=== PATIENT | male | born 1965 ===

== ENCOUNTER 2023-03-04 15:26 | Inpatient (IN) | payer MEDICARE, BC, SELFPAY ==
[2023-03-04 15:38] VITALS: BP 160/95; BP 200/120; PULSE 72; PULSE 75; RESP 14; TEMP 36.9; O2SAT 96; O2SAT 99; BMI 30.6
--- NOTE | 2023-03-04 16:02 | ECG_ITS ---
Test Reason : HYPERTENTION Blood Pressure : / mmHG Vent. Rate : 069 BPM Atrial Rate : 069 BPM P-R Int : 146 ms QRS Dur : 094 ms QT Int : 414 ms P-R-T Axes : 052 -16 022 degrees QTc Int : 443 ms Normal sinus rhythm Possible Left atrial enlargement Left ventricular hypertrophy ( R in aVL , Woody product , Romhilt-Melendez ) Abnormal ECG No previous ECGs available Referred By: Generic ED Physician Electronically Signed By:LES SALAS
--- NOTE | 2023-03-04 16:16 | ED_ITS ---
HPI - Psych General Chief Complaint: Psychiatric Symptoms Stated Complaint: Section 12, depression, hypertension per ems Time Seen by Provider: 03/04/23 16:09 Source: patient Mode of arrival: EMS Limitations: no limitations History of Present Illness HPI Narrative: Patient comes to the emergency room complaining of worsening depression. Seems that patient is having marital problems. Patient had a well check today, PD was called to the patient's residence, seems that the patient mentioned that he is trying to solve his problems by ingesting more pain medication than usual. Patient denies HI. Patient requesting to be seen by the care team for help for depression. Patient states that he has been out of his lisinopril / hydrochlorothiazide tablet for over a month because he ran out of them. Related Data Allergies Allergy/AdvReac Type Severity Reaction Status Date / Time azithromycin Allergy Rash Verified 03/04/23 15:54 Review of Systems 2 Review of Systems: Constitutional : No Weight loss, No Fever, No Chills, No Night Sweats, No Fatigue, No Malaise ENT/Mouth : No Hearing loss, No Ear Pain, No Nasal Congestion, No Sinus Pain, No Hoarseness, No sore throat, No Rhinorrhea, No Swallowing Difficulty Eyes: No Eye Pain, No Swelling, No Redness, No Foreign Body, No Discharge, No Vision Changes Cardiovascular : No Chest Pain, No SOB, No Dyspnea on Exertion, No Orthopnea, No Edema, No Palpitations Respiratory : No Cough, No Sputum, No Wheezing, No Smoke Exposure, No Dyspnea Gastrointestinal : No Nausea, No Vomiting, No Diarrhea, No Constipation, No abdominal Pain, No Hematochezia, No Melena Genitourinary : no irregular bleeding, No Dysuria, No Urinary Frequency, No Hematuria, No Urinary Incontinence, No Urgency, No Flank Pain, No Urinary Flow Changes, No Hesitancy Musculoskeletal : No joint pain, No Myalgias, No Joint Swelling Skin : No Skin Lesions, No rash Neuro : No Weakness, No Numbness, No Paresthesias, No Loss of Consciousness, No Dizziness, No Headache Psych Complaining of depression, vague SI, no HI Heme/Lymph: No Bruising, No Bleeding,No Lymphadenopathy Endocrine : No Polyuria, No Polydipsia, No Temperature Intolerance PMFSH Past Medical History Medical History (Updated 03/04/23 @ 17:46 by Jesenia Cardona MD) Depression Social History Social History Advance Directives: No Advance Directives Information Provided: No Physical Exam 2 Vital Signs: Vital Signs: Last Vital Signs Temp 97.6 F 03/04/23 20:45 Pulse 88 03/04/23 20:20 Resp 16 03/04/23 20:20 BP 135/82 03/04/23 20:20 Pulse Ox 94 03/04/23 20:20 O2 Del Method Nasal Cannula 03/04/23 20:20 O2 Flow Rate 2 03/04/23 20:20 BMI result Body Mass Index 30.6 Const: Other: Appearance: Alert. Oriented X3. No acute distress. Eyes: Pupils equal, round and reactive to light. ENT: Pharynx normal. Neck: Normal inspection. Neck supple. No lymph nodes noted. No crepitus CVS: Normal heart rate and rhythm. Pulses normal. Normal S1 and S2 Respiratory: No respiratory distress. Breath sounds normal. No Wheezing. No rales Abdomen: Soft and nontender. No rigidity. No distention. Skin: Skin warm and dry. Normal skin color. Normal skin turgor. Extremities: No lower extremity edema. No Lacerations. No Rash Neuro: Oriented X 3. No motor deficit. No sensory deficit. Moving all extremities. No slurred speech. CN 2 through 12 grossly intact Psych: calm, cooperative, flat affect Course Course Course Narrative: - all of patient's labs pending - patient is on a Section 12 started out in the community - care team consult pending Medical Decision Making Medical Decision Making MDM Narrative: - my interpretation of labs: Hematology within normal limits, chemistry normal, alcohol 11 - urine pending - care team consult pending - physician observation started at 17:40 -CARE team evaluated the pt, recs: [facility] for tomorrow, CARE team follow up in am of 03/05/23 Differential Diagnosis Differential Diagnoses: The differential diagnosis associated with the presentation includes ( anxiety, depression, polysubstance abuse, alcohol dependence , alcohol abuse) Admission/Observation Consideration of admission/observation: Escalation of care including admission/observation considered ( patient will remain under observation in the emergency room until behavioral health evaluates the patient and plans disposition) Lab Data 03/04/23 16:26 03/04/23 16:58 Labs: Lab Results 03/04/23 03/04/23 03/04/23 Range/Units 16:26 16:58 20:40 WBC 6.8 (4.8-10.8) X10*3/uL RBC 4.90 (4.60-5.80) X10*6/uL Hgb 14.3 (14.0-18.0) g/dl Hct 42.8 (42.0-52.0) % MCV 87.3 (80.0-98.0) fL MCH 29.2 (27.0-33.0) pg MCHC 33.4 (31.0-36.0) g/dl RDW 12.8 (11.0-16.0) % Plt Count 221 (160-400) X10*3/uL MPV 10.0 (9.4-12.4) fL Immature Gran % (Auto) 0.4 (0.0-0.4) % Neut % (Auto) 54.9 (45-73) % Lymph % (Auto) 29.2 (20-40) % [place] % (Auto) 8.5 (2-11) % Eos % (Auto) 5.4 H (0-4) % Baso % (Auto) 1.6 (0-2) % Lymph # (Auto) 2.0 (1.2-4.9) X10*3/uL [place] # (Auto) 0.6 (0.1-1.2) X10*3/uL Eos # (Auto) 0.4 (0.0-0.4) X10*3/uL Baso # (Auto) 0.1 (0.0-0.2) X10*3/uL Abs Immat Gran (auto) 0.03 (0.00-0.03) X10*3/uL Absolute Neuts (auto) 3.7 (2.0-8.3) x10*3/uL Absolute Nucleated RBC 0.000 (0.0-0.012) X10*3/uL Nucleated RBC % (auto) 0.0 (0.0-0.2) /100WBC Sodium 142 (135-145) mmol/L Potassium 4.2 (3.3-5.1) mmol/L Chloride 107 (96-108) mmol/L Carbon Dioxide 27 (22-29) mmol/L Anion Gap 12 (12-20) BUN 11 (9-16) mg/dL Creatinine 0.80 (0.5-1.4) mg/dL Estim Creat Clear Calc 137.0 Estimated GFR > 60 Random Glucose 96 (60-115) mg/dL Calcium 9.2 (8.4-10.2) mg/dL Troponin I High Sens < 2.7 (<3.5-35.0) ng/L Urine Color Yellow Urine Appearance Clear Urine pH 6.0 (5.0-9.0) Ur Specific [place] 1.015 (1.005-1.025) Urine Protein Negative (Neg-Trace) mg/dL Urine Glucose (UA) Negative (Negative) mg/dL Urine Ketones Negative (Negative) mg/dL Urine Blood Negative (Negative) Urine Nitrite Negative (Negative) Ur Leukocyte Esterase Negative (Negative) Urine Opiates Screen Not Detected (Not Detect) Urine Fentanyl Screen Not Detected (Not Detect) Ur Barbiturates Screen Not Detected (Not Detect) Ur Phencyclidine Scrn Not Detected (Not Detect) Ur Amphetamines Screen Not Detected (Not Detect) U Benzodiazepines Scrn POSITIVE H (Not Detect) Urine Cocaine Screen Not Detected (Not Detect) U Marijuana (THC) Screen Not Detected (Not Detect) Ethyl Alcohol 11 mg/dL Discharge Plan Discharge Clinical Impression: Depression Patient Disposition: Still a Patient Interventions: [place]-Suicide Risk Severity Scale Last Done: 03/04/23 20:20
[2023-03-04 16:31] LABS: MANUAL DIFF FLAG NO
[2023-03-04 16:32] LABS: Basophils Absolute Auto 0.1 X10*3/uL (0.0-0.2); Basophils Percent Auto 1.6 % (0-2); Eosinophils Absolute Auto 0.4 X10*3/uL (0.0-0.4); Eosinophils Percent Auto 5.4 % (0-4); Hematocrit 42.8 % (42.0-52.0); Hemoglobin 14.3 g/dl (14.0-18.0); Imm Gran Abs Auto 0.03 X10*3/uL (0.00-0.03); Imm Gran Pct Auto 0.4 % (0.0-0.4); Lymphocytes Percent Auto 29.2 % (20-40); Mean Corpuscular HGB Conc 33.4 g/dl (31.0-36.0); Mean Corpuscular Hemoglobin 29.2 pg (27.0-33.0); Mean Corpuscular Volume 87.3 fL (80.0-98.0); Monocytes Absolute Auto 0.6 X10*3/uL (0.1-1.2); Monocytes Percent Auto 8.5 % (2-11); Neutrophils Absolute Auto 3.7 x10*3/uL (2.0-8.3); Neutrophils Percent Auto 54.9 % (45-73); Platelet Count 221 X10*3/uL (160-400); Red Cell Distribution Width 12.8 % (11.0-16.0); White Blood Count 6.8 X10*3/uL (4.8-10.8)
[2023-03-04 17:29] LABS: Anion Gap 12 (12-20); Blood Urea Nitrogen 11 mg/dL (9-16); Calcium 9.2 mg/dL (8.4-10.2); Carbon Dioxide 27 mmol/L (22-29); Chloride 107 mmol/L (96-108); Estimated Glomerular Filt Rate > 60; Ethanol 11 mg/dL; Glucose Random 96 mg/dL (60-115); Potassium 4.2 mmol/L (3.3-5.1); Sodium 142 mmol/L (135-145)
[2023-03-04 17:44] LABS: Troponin-I High Sensitivity < 2.7 ng/L (<3.5-35.0)
[2023-03-04 20:20] VITALS: BP 135/82; PULSE 88; RESP 16; TEMP 36.9; O2SAT 94
[2023-03-04 20:45] VITALS: TEMP 36.4
--- NOTE | 2023-03-04 20:53 | PC.NURSE ---
Assumed care of pt at 1914. PT sleeping until 2044 in which he was able to provide this RN a urine sample. Pt in hospital for special care gown, sitter at bedside. Vital signs stable 139/81 (106), pulse 75 rr 16. PT initially on 2L of oxygen tapered to zero as pt oxygen saturation is at 95% on RA. Plan of care ongoing
[2023-03-04 20:55] LABS: Appearance Urine Clear; Color Urine Yellow; Glucose Urine UA Negative (Negative); Leukocyte Esterase Urine Negative (Negative); Nitrite Urine Negative (Negative); Specific Gravity - Urine 1.015 (1.005-1.025); Urine Blood Negative (Negative); Urine Ketones Negative (Negative); Urine Protein Negative (Neg-Trace)
[2023-03-04 21:01] LABS: Amphetamine Screen Urine Not Detected (Not Detect); Barbiturates, Urine Not Detected (Not Detect); Benzodiazepines Screen Urine POSITIVE (Not Detect); Cannabinoid Screen Urine Not Detected (Not Detect); Cocaine Screen Urine Not Detected (Not Detect); Fentanyl, urine Not Detected (Not Detect); Opiate Screen Urine Not Detected (Not Detect); Phencyclidine Screen Urine Not Detected (Not Detect)
[2023-03-05 00:57] VITALS: BP 141/85; PULSE 56; RESP 16; TEMP 36.5; O2SAT 97
[2023-03-05 04:02] VITALS: BP 172/101; PULSE 67; RESP 18; TEMP 36.7; O2SAT 94
[2023-03-05] MEDS: LORazepam 1 MG TABLET 2 MG PO ×2 (04:50→13:31)
[2023-03-05 06:57] VITALS: BP 156/87; PULSE 72; RESP 15; TEMP 36.9; O2SAT 98
--- NOTE | 2023-03-05 06:59 | PC.NURSE ---
PT reporting mild anxiety and wanted to calm down. Med rec completed. Medications administered as per AUG. Pt resting quietly in no cute distress. Denies hi/si at this time.
--- NOTE | 2023-03-05 08:05 | PC.NURSE ---
sleeping and easily woken, states he doesn't need anything, skin wpd, sitter at bedside, CARE team reports plan to go to respite
[2023-03-05] MEDS: levETIRAcetam 1,000 MG TABLET 1000 MG PO ×2 (08:39→19:52)
--- NOTE | 2023-03-05 09:46 | PHA.MEDREC ---
Addendum entered by Anoop Cruz 03/06/23 12:02: Told by RN that patient's mom states the patient was DC'd off Keppra and Ambien months ago by their neurologist. Called patient's pharmacy, to which they stated patient has been actively refilling medication (Keppra 750mg on 03/01/23 and Ambien 5mg 02/08/23). Notified RN Amber and she stated that she will ask the patient regarding the two medications. Original Note: Pharmacy Consult ? Medication Reconciliation Pharmacy has completed the medication reconciliation. Patient fills at [address] Called to confirm since nothing shows in claim history.
--- NOTE | 2023-03-05 09:51 | PC.NURSE ---
alert, speech clear, skin wpd, nad, spoke with his mother and awaiting care team placement, sitter at bedside, calm and cooperative, nad
--- NOTE | 2023-03-05 11:07 | MHC.EDTECH ---
Patient refused vitals. states he needs to make a call. He has been on the phone all morning. Nurse Regina garibay. SG
--- NOTE | 2023-03-05 11:33 | MHC.CARE ---
CARE Team completed referral to [facility] at 8am. Referral is still under review. CARE Team updated Pt at 930am, Pt continues to be in agreement with plan of care. Pt gave t/w verbal permission for CARE Team to collaborate with Pts mother Lolly Law (sp) [phone] or [phone]. Lolly states she will be able to bring medication to [facility] / clothing ect for PT.
[2023-03-05] MEDS: OLANZapine 10 MG TABLET PO (13:31)
--- NOTE | 2023-03-05 13:33 | PC.NURSE ---
pt medicated per AUG, transitioned into rm 6 in [facility] pod, pt expressing anxiety r/t length of respite stay and not liking his surroundings in the pod, pt has a section [address]
[2023-03-05 19:29] VITALS: BP 158/85; PULSE 56; RESP 18; TEMP 36.4; O2SAT 96
[2023-03-05] MEDS: Acetaminophen 325 MG TABLET 975 MG PO (19:52)
[2023-03-05] MEDS: Zolpidem Tartrate 5 MG TABLET 10 MG PO (19:52)
[2023-03-05] MEDS: lisinopriL 20 MG TABLET PO (19:53)
[2023-03-05] MEDS: hydroCHLOROthiazide 25 MG TABLET PO (19:53)
[2023-03-06 03:13] VITALS: BP 145/83; PULSE 58; RESP 17; TEMP 36.5; O2SAT 98
--- NOTE | 2023-03-06 06:22 | PC.NURSE ---
Patient slept intermittently, no distress observed/reported except lower back pain tylenol 975 mg administered with + effect, patient compliant with his night time medication, patient thought continues to remain paranoid, behavior non concerning, ambulates safely with walker, care team assessed the patient twice, disposition pending psych consult, labs completed/resulted, VSS, will continue to monitor.
--- NOTE | 2023-03-06 07:26 | PC.NURSE ---
Resumed care of patient, he is currently resting. Awaiting placement at this time. Safety measures in place, safety checks in place.
[2023-03-06] MEDS: levETIRAcetam 1,000 MG TABLET 1000 MG PO (07:57)
[2023-03-06 08:25] LABS: COVID-19 Test Negative (Negative); IDNOW Serial# 08D9AD1C
[2023-03-06 09:47] VITALS: PULSE 58
--- NOTE | 2023-03-06 09:49 | PC.NURSE ---
Pt scored for COWS/CIWA as pt states he is withdrawing, when pt asked what symptoms he feels he is having he reports increased depression, and lower back pain. Pt reporting he is withdrawing from an opiod he was given for his back pain, last took prior to coming into hospital. Pt story is all over the place with scattered thoughts/conversations. Pt denies n/v/d/tremors/hallucinations/sensations at this time..
[2023-03-06] MEDS: Acetaminophen 325 MG TABLET 975 MG PO (10:56)
--- NOTE | 2023-03-06 11:12 | PC.NURSE ---
Pt mom and step dad currently visiting with patient in Pod, pt is very excited to see them and talk with them
--- NOTE | 2023-03-06 12:20 | PC.NURSE ---
This pattern chart writer touched base with mom while she was visiting, mom verbalized concerns about patients behaviors/ current mental status. Medications discussed that were being taken including Keppra and Ambien mom verbalized that the patient had not been taking these for months, and that keppra makes the patient a high fall risk and not in his right mind. MD and Pharmacy made aware. Pharmacy contact [facility] to clarify when the pt last refilled medication, [facility] confirmed Keppra was last filled on 03/01 and Ambien was 02/08. Pt verbilzed to mom he did refill them, however he is only taking the Keppra when his mind is racing and he is overwhelmed because it helps slow his mind He reported that he has liked taking the Ambien here because it is helping him sleep here just not at home. Pharm made this pattern chart writer aware that we do not carry his Nucynta in house, mom made aware and was going to bring in home supply, M5 nurse/pharm made aware, mom is aware of process with home medication review/orders. MD Hinojosa updated on medication concerns, and would like to have provider take over medication changes from here d/t concerns/misuse. Mom updated of plan to move to , possible d/c options, current plan of care/concerns. Everyone in agreement at this time. Nurse to nurse report given.
[2023-03-06 16:00] VITALS: PULSE 85
--- NOTE | 2023-03-06 17:28 | PC.NURSE ---
pt w given a walker due to unsteady gait per Dr. Reynolds. pt had a walker in the [facility] ED. pt reported to feeling better walking with the walker. pt was placed on 5 minute checks due to equipment.
--- NOTE | 2023-03-06 17:43 | PC.ADMIT ---
pt is a 57 year male who presented with confusion and SI. pt reported took several pills to feel numb pt was picked up by sin FREEMAN after being agitated and locking them out after a well-being check. per pt patient's mother and ex , pt has been acting erratic in the last few weeks. pt has a charge for disorderly driving. pt has prescription for nucyenta, an opioid medication, we has not taken in several days. pt reports he is withdrawing from not taking that med. pt reports he is not been takig his meds until he got in the hospital. pt has a PMH of a TBI, HTN, and back pain. pt has been walking with walker, approved by Dr. Reynolds, due to his unsteady gait. pt has been placed on 5 min checks. pt says he drools from the left side of his mouth and it was seen during admission. during admission, pt was pleasant, but tended to ramble on about his and his head condition. pt is confused at times. start treatment plan and promote safety.
[2023-03-06 18:00] VITALS: BP 172/85; PULSE 85; TEMP 36.8; O2SAT 95
--- NOTE | 2023-03-06 18:51 | PC.NURSE ---
pt signed a 3 day on 03/06/23. pt 3 day will be 03/09/23
[2023-03-06] MEDS: Zolpidem Tartrate 5 MG TABLET 10 MG PO (20:22)
[2023-03-06] MEDS: lisinopriL 20 MG TABLET PO (20:22)
[2023-03-06] MEDS: Fenofibrate,Micronized 134 MG CAPSULE PO (20:23)
[2023-03-06] MEDS: hydroCHLOROthiazide 25 MG TABLET PO (20:23)
[2023-03-07] MEDS: traZODone HCL 50 MG TABLET PO (01:53)
[2023-03-07] MEDS: hydrOXYzine HCL 25 MG TABLET PO ×2 (01:53→21:01)
[2023-03-07] MEDS: Ondansetron ODT 4 MG TAB.RAPDIS TRANSLINGU (02:32)
[2023-03-07] MEDS: cloNIDine HCL 0.1 MG TABLET PO (02:32)
--- NOTE | 2023-03-07 02:36 | PC.NURSE ---
Patient out on unit complaining of symptoms of withdrawal. Upon assessment, patient scored a 9 on his COWS. Provider cardiac monitor technician notified and orders obtained for one time order of 0.1mg clonidine and 4mg zofran.
[2023-03-07 06:00] VITALS: BP 140/87; PULSE 85; RESP 16; TEMP 36.9; O2SAT 95
[2023-03-07] MEDS: Omeprazole 40 MG CAPSULE.DR PO (06:17)
[2023-03-07 08:00] VITALS: PULSE 85
[2023-03-07] MEDS: levETIRAcetam 1,000 MG TABLET 1000 MG PO (08:14)
[2023-03-07] MEDS: Atorvastatin Calcium 40 MG TABLET PO (08:14)
[2023-03-07 09:05] LABS: Thyroid Stimulating Hormone 0.43 uIU/mL (0.32-4.0)
[2023-03-07 09:18] LABS: Folate 11.3 ng/mL (> or = 4.0); Vitamin B12 581 pg/mL (200-900)
--- NOTE | 2023-03-07 09:57 | HO.PSYADMNOT ---
HPI Date of Service: 03/07/23 Chief Complaint: overdose Sources of Information: patient interviewed, chart reviewed and crisis/core team assessment reviewed HPI Subjective Notes: Jarvis Warning and Conditional Voluntary Narrative: Pt is a 57 yo male with hx of depression, TBI 2020, chronic back pain who presents for depression and concern for overdose/SI. Patient reports that he has been depressed lately since his is dealing with breast cancer diagnosis and they have ongoing marital strife; also his and mother do not get along which creates extra tension. Patient denies any SI at all. This past week patient was at his mother's house spending time with her; on his way back to [facility] where he and lives with he called her to say janet. She said something to the effect that the relationship is over and said 'F.U. Patient felt badly and instead of going to [facility], went to their shared apartment and [place]. There he took extra prescribed Tapentadol ER, he says about 3, because he just wanted to feel numb... And to sleep. He denies that this was in any way a suicide attempt. He did text his friend Igor who said that patient sounded groggy and texted the word good by; Igor grew concerned and called patient's mother who called 911. Patient reiterates that this was not a suicide attempt and that was not a suicide goodbye text. He shares his opinion that suicide is selfish, he has too many things to live for and too many important people to live for. Patient denies any other drugs or alcohol use. Patient is open to treatment but would also like to go home soon. Patient has been off his Tapentadol ER for 8 days now, saying his back is very painful; said the plan was for him to be tapered off this and possibly moved to Suboxone. Patient would like to get back on some amount of Tapentadol since the pain feels intense and he is having withdrawal symptoms. Patient's mother and stepfather presented to the unit and patient encouraged ticket writer to discuss case with them who both agree that this was not a suicide attempt and that patient was not suicidal. They think that the goodbye text was simply saying goodbye and she thinks that Igor was well meaning but over-reacting. His mother says that patient will intermittently take more pain medications than prescribed and will sometimes run out early in the month; I even though his Keppra was discontinued couple years ago, patient still takes some once in a while when feeling the need to have his emotions calm down. Patient's mother said that he and his have been having marital strife due to several factors which includes struggles over her own children from another marriage and her breast cancer diagnosis. She says that patient's , who was once a [facility] booking police officer will one-week tell patient that she is excited to move with him to [place] and then another week tell him the marriage is over... Regarding history of patient using a gun, she says that a few years ago, right around the time of the TBI, patient's came in to find patient sitting with 1 of her guns pointed to his head. He immediately put it down and said that he just wanted to see what it felt like; that he could never actually hurt himself and would never do so; all guns were removed from the house at that time. Mother says no other suicidal gestures or expressions before or since. Past Psychiatric History: no past admission Medical Evaluation Reviewed: Yes [facility] Medical History (Updated 03/08/23 @ 08:47 by Cody Fortune MD) Chronic back pain TBI (traumatic brain injury) MDD (major depressive disorder), recurrent episode, moderate Depression Family History: Deferred Social History: Patient currently lives in [facility] with his ; is currently battling breast cancer Patient has step children which is a source of stress; he and his are having marital trouble and intermittently talk about Patient's mother and stepfather, with whom he is close, lives in [place]. Patient goes back and forth and does have an apartment in [place] Patient suffered a TBI in 2020; mother says he has been more emotional since Substance History: No drug or alcohol use Trauma History: Deferred Diagnostics Vital Signs (24Hr): Vital Signs - 24 hr 03/06/23 18:00 03/07/23 06:00 Temperature 98.2 F 98.4 F Pulse Rate 85 85 Respiratory Rate 16 Blood Pressure 172/85 H 140/87 H Pulse Oximetry 95 95 Oxygen Delivery Method Room Air Room Air BMI result Body Mass Index 30.6 Labs 03/04/23 16:26 03/04/23 16:58 Labs: Laboratory Results - last 48 hr 03/06/23 03/07/23 07:58 07:58 Hold Purple Top SEE NOTE Vitamin B12 581 Folate 11.3 TSH 0.43 COVID-19 ([facility]RID) Negative COVID-19 Clin Com See Note Meds/Allergies Meds Home Medications Medication Instructions Recorded Confirmed Type acetaminophen 500 mg tablet 1,000 mg PO Q6H PRN Pain 03/05/23 03/05/23 History fenofibrate micronized 134 mg 134 mg PO BEDTIME 03/05/23 03/05/23 History capsule levetiracetam 750 mg tablet 750 mg PO BID 03/05/23 03/05/23 History (Keppra) lisinopril 20 1 tab PO BEDTIME 03/05/23 03/05/23 History mg-hydrochlorothiazide 25 mg tablet (Zestoretic) nebivolol 20 mg tablet (Bystolic) 20 mg PO BEDTIME 03/05/23 03/05/23 History omeprazole 40 mg capsule,delayed 40 mg PO DAILY@0630 03/05/23 03/05/23 History release rosuvastatin 10 mg tablet (Crestor) 10 mg PO DAILY 03/05/23 03/05/23 History tapentadol 150 mg tablet,extended 150 mg PO Q12H 03/05/23 03/05/23 History release,12 hr (Nucynta ER) tapentadol 50 mg tablet (Nucynta) 50 mg PO BID PRN Breakthrough Pain 03/05/23 03/05/23 History testosterone 2 pump topical DAILY 03/05/23 03/05/23 History zolpidem 5 mg tablet 2.5 mg PO BEDTIME 03/05/23 03/05/23 History Allergies Allergies Allergy/AdvReac Type Severity Reaction Status Date / Time azithromycin Allergy Rash Verified 03/04/23 15:54 Mental Status Exam Mental Status Exam Narrative: Pt is alert and oriented; behavior is cooperative, friendly and calm; patient is in back pain, and subsequently hunched over, using a walker; dressed in casual attire with adequate hygiene; mood is described as not good and affect congruent constricted; eye contact appropriate; Speech is normal rate, volume and prosody and not pressured; no psychomotor agitation/retardation present; thought process is mostly organized and goal directed but verbose and sometimes circumstantial; Thought content is on back pain, recent event, discharge, situation with his , tx; otherwise pertinent to relevant topics and without any delusional content, paranoid ideations or grandiosity; denies any SI/HI. There is no evidence of perceptual disturbance and denies AVH. Patients insight and judgment appear intact. Assessment & Plan Assessment & Plan (1) MDD (major depressive disorder), recurrent episode, moderate: Status: Acute Code(s): F33.1 - Major depressive disorder, recurrent, moderate (2) TBI (traumatic brain injury): Status: Acute Qualifiers: Loss of consciousness presence/duration: with LOC of unspecified duration Qualified Code(s): S06.9X9S - Unspecified intracranial injury with loss of consciousness of unspecified duration, sequela Code(s): S06.9XAA - Unspecified intracranial injury with loss of consciousness status unknown, initial encounter (3) Chronic back pain: Status: Acute Qualifiers: Back pain location: low back pain Code(s): M54.9 - Dorsalgia, unspecified; G89.29 - Other chronic pain Plan HPI: Pt is a 57 yo male with hx of depression, TBI 2020, chronic back pain who presents for depression and concern for overdose/SI. Patient reports that he has been depressed lately since his is dealing with breast cancer diagnosis and they have ongoing marital strife; also his and mother do not get along which creates extra tension. Patient denies any SI at all. This past week patient was at his mother's house spending time with her; on his way back to [facility] where he and lives with he called her to say janet. She said something to the effect that the relationship is over and said 'F.U. Patient felt badly and instead of going to [facility], went to their shared apartment and [place]. There he took extra prescribed Tapentadol ER, he says about 3, because he just wanted to feel numb... And to sleep. He denies that this was in any way a suicide attempt. He did text his friend Igor who said that patient sounded groggy and texted the word good by; Igor grew concerned and called patient's mother who called 911. Patient reiterates that this was not a suicide attempt and that was not a suicide goodbye text. He shares his opinion that suicide is selfish, he has too many things to live for and too many important people to live for. Patient denies any other drugs or alcohol use. Patient is open to treatment but would also like to go home soon. Patient has been off his Tapentadol ER for 8 days now, saying his back is very painful; said the plan was for him to be tapered off this and possibly moved to Suboxone. Patient would like to get back on some amount of Tapentadol since the pain feels intense and he is having withdrawal symptoms. Collateral: Patient's mother and stepfather presented to the unit and patient encouraged ticket writer to discuss case with them who both agree that this was not a suicide attempt and that patient was not suicidal. They think that the colleene text was simply saying makayla and she thinks that Igor was well meaning but over-reacting. His mother says that patient will intermittently take more pain medications than prescribed and will sometimes run out early in the month; I even though his Keppra was discontinued couple years ago, patient still takes some once in a while when feeling the need to have his emotions calm down. Patient's mother said that he and his have been having marital strife due to several factors which includes struggles over her own children from another marriage and her breast cancer diagnosis. She says that patient's , who was once a [facility] booking police officer will one-week tell patient that she is excited to move with him to [place] and then another week tell him the marriage is over... Regarding history of patient using a gun, she says that a few years ago, right around the time of the TBI, patient's came in to find patient sitting with 1 of her guns pointed to his head. He immediately put it down and said that he just wanted to see what it felt like; that he could never actually hurt himself and would never do so; all guns were removed from the house at that time. Mother says no other suicidal gestures or expressions before or since. Impression/plan: Patient has a history of depression, TBI however denies any SI at all and that overdose with prescribed Tapentadol ER was not intentional; patient's mother present knows patient well and concurs that patient not suicidal and this was accidental and not an attempt. Patient agrees that he has depression however he lists several medication trials that did not work out and currently patient is very hesitant to add any medications for depression. Patient is currently in pain and withdrawal since he has been off Tapentadol ER for 8 days now; patient says his pain management provider been planning to taper him off this medication and patient agrees to restart but at a half dose and work out further taper with outpatient provider. Patient says he has not been on Keppra for years, without any seizure activity since TBI (initially some concern patient had a seizure however neurologist has concluded this is not the case and medication was discontinued); patient also has been off Ambien for several years; will discontinue both of these which were started in the ED. Patient is asking for discharge, though he would like help getting a therapist and provider. Will monitor patient; if he remains stable will proceed with discharge PLAN: CV, now 3 day notice q 15min checks START Tapentadol (Nucynta Er 150 Mg) 150 mg PO DAILY GEOVANNA (down from BID) adding Loperamide HCl (Loperamide Hcl 2 Mg Capsule) 4 mg PO Q4H PRN for w/drawal symptoms Omeprazole (Omeprazole 40 Mg Capsule.Dr) 40 mg PO DAILY@0630 GEOVANNA Fenofibrate (Fenofibrate,Micronized 134 Mg Capsule) 134 mg PO BEDTIME GEOVANNA Hydrochlorothiazide (Hydrochlorothiazide 25 Mg Tablet) 25 mg PO BEDTIME GEOVANNA Lisinopril (Lisinopril 20 Mg Tablet) 20 mg PO BEDTIME GEOVANNA LOWER/TAPER then DC Levetiracetam; pt no longer prescribed and has not taken (regularly) in years; will start 500 mg PO DAILY GEOVANNA now (down from 1000mg BID started in ED). DC Ambien: not taken in years PENDING: Non-Formulary Medication (Nebivolol [Bystolic]) 20 mg PO BEDTIME GEOVANNA (so far BP stable) PENDING: Non-Formulary Medication (Testosterone) 2 pump TOPICAL DAILY GEOVANNA Patient educated on: diagnosis, medication risk/benefits, substance abuse and medical condition Informed Consent: understands Reason for continued inpatient stay Substantial Risk for: med/psych decompensation Statement Statement: I have reviewed the history and physical and performed a pertinent examination on my patient. No changes have occurred unless specified. If the History and Physical was not performed prior to admission, the Hospitalist's service will be consulted for completing the admission physical. Time Spent With Patient Time: Total time managing care of this patient today ____ minutes.
[2023-03-07] MEDS: Loperamide HCl 2 MG CAPSULE 4 MG PO ×2 (12:45→17:05)
[2023-03-07] MEDS: Acetaminophen 325 MG TABLET 650 MG PO ×2 (14:21→22:14)
[2023-03-07 16:00] VITALS: PULSE 88
[2023-03-07 17:20] VITALS: BP 100/65; PULSE 88; TEMP 36.1
[2023-03-07 20:50] VITALS: BP 114/70; PULSE 84; TEMP 36.2
[2023-03-07] MEDS: Fenofibrate,Micronized 134 MG CAPSULE PO (21:01)
[2023-03-07] MEDS: hydroCHLOROthiazide 25 MG TABLET PO (21:02)
[2023-03-07] MEDS: lisinopriL 20 MG TABLET PO (21:03)
[2023-03-08 06:00] VITALS: BP 144/84; PULSE 80; RESP 18; TEMP 36.7; O2SAT 96
[2023-03-08] MEDS: hydrOXYzine HCL 25 MG TABLET PO ×3 (08:26→19:39)
[2023-03-08] MEDS: Atorvastatin Calcium 40 MG TABLET PO (08:28)
[2023-03-08] MEDS: Acetaminophen 325 MG TABLET 650 MG PO ×3 (08:28→19:39)
[2023-03-08] MEDS: Loperamide HCl 2 MG CAPSULE 4 MG PO (08:32)
--- NOTE | 2023-03-08 08:54 | P.PNPSI_ITS ---
Subjective Subjective Date of Service: 03/08/23 Reason For Visit: overdose Interim History: Met with patient; discussed with team Patient feeling physically much better now restarted on pain medication; withdrawal symptoms fully resolved. Patient with much brighter affect and walking upright. Patient reports still feeling a little depressed but overall mood is better. Patient says he does not need any medications for depression but rather just to structure his life better; continues to deny any SI at all. Reports some anxiety but feels he is able to manage it. Discussed his relationship with his , struggles of navigating through her mixed messages and feeling that he just needs to get some clarity on where the 2 of them stand; he plans to go and visit her in the hospital in [place]. Patient also understands that some of his 's miscommunication could be due to the fact that she is hospitalized and has been getting morphine. Patient continues to feel ready for discharge. Mental Status Exam Mental Status Exam Narrative: Pt is alert and oriented; behavior is cooperative, friendly and calm; walking upright; dressed in casual attire with adequate hygiene; mood is described as better and affect congruent, brighter, calm; eye contact appropriate; Speech is normal rate, volume and prosody and not pressured; no psychomotor agitation/retardation present; thought process is organized and goal directed but verbose and sometimes circumstantial; Thought content is on relationship with , discharge, aftercare plans; otherwise pertinent to relevant topics and without any delusional content, paranoid ideations or grandiosity; denies any SI/HI. There is no evidence of perceptual disturbance and denies AVH. Patients insight and judgment are intact. Diagnostics Vital Signs (24Hr): Vital Signs - 24 hr 03/07/23 17:20 03/07/23 20:50 03/08/23 06:00 Temperature 97.0 F 97.2 F 98.1 F Pulse Rate 88 84 80 Respiratory Rate 18 Blood Pressure 100/65 114/70 144/84 H Pulse Oximetry 96 Oxygen Delivery Method Room Air BMI result Body Mass Index 30.6 Labs 03/04/23 16:26 03/04/23 16:58 Labs: Laboratory Results - last 48 hr 03/07/23 07:58 Hold Purple Top SEE NOTE Vitamin B12 581 Folate 11.3 TSH 0.43 Medications Medications Current Medications Acetaminophen (Acetaminophen 325 Mg Tablet) 650 mg PO Q6H PRN PRN Reason: Headache/Pain Mild Scale (1-3) Last Admin: 03/08/23 08:28 Dose: 650 mg Al Hydroxide/Mg Hydroxide (Magnesium Hydrox/Alum Hydrox 30 Ml Oral.Susp) 30 ml PO Q6H PRN PRN Reason: Heartburn/Nausea Atorvastatin Calcium (Atorvastatin Calcium 40 Mg Tablet) 40 mg PO DAILY [facility] Last Admin: 03/08/23 08:28 Dose: 40 mg Fenofibrate (Fenofibrate,Micronized 134 Mg Capsule) 134 mg PO BEDTIME [facility] Last Admin: 03/07/23 21:01 Dose: 134 mg Hydrochlorothiazide (Hydrochlorothiazide 25 Mg Tablet) 25 mg PO BEDTIME [facility] Last Admin: 03/07/23 21:02 Dose: 25 mg Hydroxyzine HCl (Hydroxyzine Hcl 25 Mg Tablet) 25 mg PO Q6H PRN PRN Reason: Anxiety Last Admin: 03/08/23 08:26 Dose: 25 mg Levetiracetam (Levetiracetam 500 Mg Tablet) 500 mg PO DAILY [facility] Last Admin: 03/08/23 08:33 Dose: Not Given Lisinopril (Lisinopril 20 Mg Tablet) 20 mg PO BEDTIME [facility] Last Admin: 03/07/23 21:03 Dose: 20 mg Loperamide HCl (Loperamide Hcl 2 Mg Capsule) 4 mg PO Q4H PRN PRN Reason: loose stool Last Admin: 03/08/23 08:32 Dose: 4 mg Magnesium Hydroxide (Milk Of Magnesia 30 Ml Oral.Susp) 30 ml PO DAILY PRN PRN Reason: Constipation Non-Formulary Medication (Nebivolol [Bystolic]) 20 mg PO BEDTIME [facility] Non-Formulary Medication (Testosterone) 2 pump TOPICAL DAILY [facility] Pt Own Med ( Tapentadol: Nucynta Er 150 Mg) 150 mg PO DAILY [facility] Last Admin: 03/08/23 08:26 Dose: 150 mg Omeprazole (Omeprazole 40 Mg Capsule.Dr) 40 mg PO DAILY@0630 [facility] Last Admin: 03/08/23 06:13 Dose: Not Given Allergies Allergies Allergy/AdvReac Type Severity Reaction Status Date / Time azithromycin Allergy Rash Verified 03/04/23 15:54 Assessment & Plan Assessment & Plan (1) MDD (major depressive disorder), recurrent episode, moderate: Status: Acute Code(s): F33.1 - Major depressive disorder, recurrent, moderate (2) TBI (traumatic brain injury): Qualifiers: Loss of consciousness presence/duration: with LOC of unspecified duration Qualified Code(s): S06.9X9S - Unspecified intracranial injury with loss of consciousness of unspecified duration, sequela Status: Acute Code(s): S06.9XAA - Unspecified intracranial injury with loss of consciousness status unknown, initial encounter (3) Chronic back pain: Qualifiers: Back pain location: low back pain Status: Acute Code(s): M54.9 - Dorsalgia, unspecified; G89.29 - Other chronic pain Plan HPI: Pt is a 57 yo male with hx of depression, TBI 2020, chronic back pain who presents for depression and concern for overdose/SI. Patient reports that he has been depressed lately since his is dealing with breast cancer diagnosis and they have ongoing marital strife; also his and mother do not get along which creates extra tension. Patient denies any SI at all. This past week patient was at his mother's house spending time with her; on his way back to [facility] where he and lives with he called her to say janet. She said something to the effect that the relationship is over and said 'F.U. Patient felt badly and instead of going to [facility], went to their shared apartment and [place]. There he took extra prescribed Tapentadol ER, he says about 3, because he just wanted to feel numb... And to sleep. He denies that this was in any way a suicide attempt. He did text his friend Igor who said that patient sounded groggy and texted the word good by; Igor grew concerned and called patient's mother who called 911. Patient reiterates that this was not a suicide attempt and that was not a suicide goodbye text. He shares his opinion that suicide is selfish, he has too many things to live for and too many important people to live for. Patient denies any other drugs or alcohol use. Patient is open to treatment but would also like to go home soon. Patient has been off his Tapentadol ER for 8 days now, saying his back is very painful; said the plan was for him to be tapered off this and possibly moved to Suboxone. Patient would like to get back on some amount of Tapentadol since the pain feels intense and he is having withdrawal symptoms. Collateral: Patient's mother and stepfather presented to the unit and patient encouraged justowriter operator to discuss case with them who both agree that this was not a suicide attempt and that patient was not suicidal. They think that the colleene text was simply saying makayla and she thinks that Igor was well meaning but over- reacting. His mother says that patient will intermittently take more pain medications than prescribed and will sometimes run out early in the month; I even though his Keppra was discontinued couple years ago, patient still takes some once in a while when feeling the need to have his emotions calm down. Patient's mother said that he and his have been having marital strife due to several factors which includes struggles over her own children from another marriage and her breast cancer diagnosis. She says that patient's , who was once a [employer] fast food services manager will one-week tell patient that she is excited to move with him to [place] and then another week tell him the marriage is over... Regarding history of patient using a gun, she says that a few years ago, right around the time of the TBI, patient's came in to find patient sitting with 1 of her guns pointed to his head. He immediately put it down and said that he just wanted to see what it felt like; that he could never actually hurt himself and would never do so; all guns were removed from the house at that time. Mother says no other suicidal gestures or expressions before or since. Impression: Patient has a history of depression, TBI however denies any SI at all and that overdose with prescribed Tapentadol ER was not intentional; patient's mother present knows patient well and concurs that patient not suicidal and this was accidental and not an attempt. Patient agrees that he has depression however he lists several medication trials that did not work out and currently patient is very hesitant to add any medications for depression. Hospital course: on the unit, patient remained in good behavioral and impulse control. Patient was in pain and withdrawal since he has been off Tapentadol ER for 8 days now; patient says his pain management provider been planning to taper him off this medication and patient agrees to restart but at a half dose and work out further taper with outpatient provider. Patient says he has not been on Keppra for years, without any seizure activity since TBI (initially some concern patient had a seizure however neurologist has concluded this is not the case and medication was discontinued); since restarted in the emergency room will restart patient now on 500 mg daily and let him taper off with outpatient provider which is his expressed plan; patient also has been off Ambien for several years; will discontinue both of these which were started in the ED. Patient reported feeling much better with having been restarted on Tapentadol ER; his affect was noticeably brighter and he was walking upright. He reported feeling overall better, and though some mild depression, is not concerned about it and does not want or feel the need for any medication for depression; he continued to deny any SI at all. Discussed his relationship with his , struggles of navigating through her mixed messages and feeling that he just needs to get some clarity on where the 2 of them stand; he plans to go and visit her in the hospital in [place]. Patient continues to report that he feels stable, safe and would like to discharges soon as possible, though he would like help getting setting up an appointment with a therapist and provider. Three day notice is in. Patient has remained stable on the unit and is not in imminent risk for harm to self or others.. Will proceed with discharge plans. Medication: Continue Tapentadol (Nucynta Er 150 Mg) 150 mg PO DAILY [facility] (down from BID) adding Loperamide HCl (Loperamide Hcl 2 Mg Capsule) 4 mg PO Q4H PRN for w/drawal symptoms Omeprazole (Omeprazole 40 Mg Capsule.) 40 mg PO DAILY@0630 [facility] Fenofibrate (Fenofibrate,Micronized 134 Mg Capsule) 134 mg PO BEDTIME [facility] Hydrochlorothiazide (Hydrochlorothiazide 25 Mg Tablet) 25 mg PO BEDTIME [facility] Lisinopril (Lisinopril 20 Mg Tablet) 20 mg PO BEDTIME [facility] LOWERed to Levetiracetam 500 mg PO DAILY [facility]; pt no longer prescribed and has not taken (regularly) in years; ED restarted him on 1000mg BID; lowering now and pt will f/u with PCP. DC'd Ambien: not taken in years (was restarted in ED) Pt to continue as outpt (Nebivolol [Bystolic]) 20 mg PO BEDTIME [facility] (currently Non-Formulary in the hospital; so far BP stable) Pt to continue as outpt (Testosterone) 2 pump TOPICAL DAILY (currently Non- Formulary in the hospital) Patient educated on: diagnosis, medication risk/benefits, therapeutic strategies and medical condition Informed Consent: understands Reason for continued inpatient stay Substantial Risk for: stable for discharge Time Spent With Patient Time: Total time managing care of this patient today ____ minutes.
[2023-03-08 19:37] VITALS: BP 98/52; PULSE 80; TEMP 36.6
[2023-03-08] MEDS: Fenofibrate,Micronized 134 MG CAPSULE PO (19:39)
[2023-03-08] MEDS: hydroCHLOROthiazide 25 MG TABLET PO (19:40)
[2023-03-08] MEDS: lisinopriL 20 MG TABLET PO (19:40)
[2023-03-08] MEDS: Ibuprofen 400 MG TABLET PO (20:59)
[2023-03-09] MEDS: Atorvastatin Calcium 40 MG TABLET PO (07:57)
[2023-03-09] MEDS: levETIRAcetam 500 MG TABLET PO (07:57)
[2023-03-09 08:00] VITALS: PULSE 87
[2023-03-09 08:15] VITALS: BP 129/68; PULSE 87; RESP 16; TEMP 35.8; O2SAT 95
--- NOTE | 2023-03-09 10:21 | P.DS_ITS ---
DS: Providers Provider Date of Service: 03/09/23 Date of admission: 03/06/23 12:40 Date of discharge: 03/09/23 Primary care physician: Unknown Physician Attending physician on admission: Cody Fortune Attending physician on discharge: Cody Fortune DS: Diagnosis Discharge Diagnosis (1) MDD (major depressive disorder), recurrent episode, moderate: Status: Acute (2) TBI (traumatic brain injury): Status: Acute (3) Chronic back pain: Status: Acute DS: Medications Discharge Medications Home Medications: Home Medications Medication Instructions Recorded Confirmed acetaminophen 500 mg tablet 1,000 mg PO Q6H PRN Pain 03/05/23 03/05/23 fenofibrate micronized 134 mg 134 mg PO BEDTIME 03/05/23 03/05/23 capsule lisinopril 20 1 tab PO BEDTIME 03/05/23 03/05/23 mg-hydrochlorothiazide 25 mg tablet (Zestoretic) nebivolol 20 mg tablet (Bystolic) 20 mg PO BEDTIME 03/05/23 03/05/23 omeprazole 40 mg capsule,delayed 40 mg PO DAILY@0630 03/05/23 03/05/23 release rosuvastatin 10 mg tablet (Crestor) 10 mg PO DAILY 03/05/23 03/05/23 testosterone 2 pump topical DAILY 03/05/23 03/05/23 Previous Rx's Medication Instructions Recorded Nucynta 150 mg PO DAILY ##0 03/09/23 Mental Status Exam Mental Status Exam Narrative: Pt is alert and oriented; behavior is cooperative, friendly and calm; walking upright; dressed in casual attire with adequate hygiene; mood is described as good and affect congruent, brighter, calm; eye contact appropriate; Speech is normal rate, volume and prosody and not pressured; no psychomotor agitation/retardation present; thought process is organized and goal directed but verbose and sometimes circumstantial; Thought content is on relationship with , discharge, aftercare plans; otherwise pertinent to relevant topics and without any delusional content, paranoid ideations or grandiosity; denies any SI/HI. There is no evidence of perceptual disturbance and denies AVH. Patients insight and judgment are intact. Data Data Completed and Pending Completed studies during hospitalization [Text1]: 03/04/23 03/04/23 03/04/23 16:26 16:58 20:40 WBC 6.8 RBC 4.90 Hgb 14.3 Hct 42.8 MCV 87.3 MCH 29.2 MCHC 33.4 RDW 12.8 Plt Count 221 MPV 10.0 Immature Gran % (Auto) 0.4 Neut % (Auto) 54.9 Lymph % (Auto) 29.2 [place] % (Auto) 8.5 Eos % (Auto) 5.4 H Baso % (Auto) 1.6 Lymph # (Auto) 2.0 [place] # (Auto) 0.6 Eos # (Auto) 0.4 Baso # (Auto) 0.1 Abs Immat Gran (auto) 0.03 Absolute Neuts (auto) 3.7 Absolute Nucleated RBC 0.000 Nucleated RBC % (auto) 0.0 Hold Purple Top Sodium 142 Potassium 4.2 Chloride 107 Carbon Dioxide 27 Anion Gap 12 BUN 11 Creatinine 0.80 Estim Creat Clear Calc 137.0 Estimated GFR > 60 Random Glucose 96 Calcium 9.2 Troponin I High Sens < 2.7 Vitamin B12 Folate TSH Urine Color Yellow Urine Appearance Clear Urine pH 6.0 Ur Specific [place] 1.015 Urine Protein Negative Urine Glucose (UA) Negative Urine Ketones Negative Urine Blood Negative Urine Nitrite Negative Ur Leukocyte Esterase Negative Urine Opiates Screen Not Detected Urine Fentanyl Screen Not Detected Ur Barbiturates Screen Not Detected Ur Phencyclidine Scrn Not Detected Ur Amphetamines Screen Not Detected U Benzodiazepines Scrn POSITIVE H Urine Cocaine Screen Not Detected U Marijuana (THC) Screen Not Detected Ethyl Alcohol 11 COVID-19 ([facility]) COVID-19 Clin Com 03/06/23 03/07/23 07:58 07:58 WBC RBC Hgb Hct MCV MCH MCHC RDW Plt Count MPV Immature Gran % (Auto) Neut % (Auto) Lymph % (Auto) [place] % (Auto) Eos % (Auto) Baso % (Auto) Lymph # (Auto) [place] # (Auto) Eos # (Auto) Baso # (Auto) Abs Immat Gran (auto) Absolute Neuts (auto) Absolute Nucleated RBC Nucleated RBC % (auto) Hold Purple Top SEE NOTE Sodium Potassium Chloride Carbon Dioxide Anion Gap BUN Creatinine Estim Creat Clear Calc Estimated GFR Random Glucose Calcium Troponin I High Sens Vitamin B12 581 Folate 11.3 TSH 0.43 Urine Color Urine Appearance Urine pH Ur Specific [place] Urine Protein Urine Glucose (UA) Urine Ketones Urine Blood Urine Nitrite Ur Leukocyte Esterase Urine Opiates Screen Urine Fentanyl Screen Ur Barbiturates Screen Ur Phencyclidine Scrn Ur Amphetamines Screen U Benzodiazepines Scrn Urine Cocaine Screen U Marijuana (THC) Screen Ethyl Alcohol COVID-19 ([facility]) Negative COVID-19 Clin Com See Note DS: Summary Hospital Course Hospital Course: HPI: Pt is a 57 yo male with hx of depression, TBI 2020, chronic back pain who presents for depression and concern for overdose/SI. Patient reports that he has been depressed lately since his is dealing with breast cancer diagnosis and they have ongoing marital strife; also his and mother do not get along which creates extra tension. Patient denies any SI at all. This past week patient was at his mother's house spending time with her; on his way back to [facility] where he and lives with he called her to say janet. She said something to the effect that the relationship is over and said 'F.U. Patient felt badly and instead of going to [facility], went to their shared apartment and [place]. There he took extra prescribed Tapentadol ER, he says about 3, because he just wanted to feel numb... And to sleep. He denies that this was in any way a suicide attempt. He did text his friend Igor who said that patient sounded groggy and texted the word good by; Igor grew concerned and called patient's mother who called 911. Patient reiterates that this was not a suicide attempt and that was not a suicide goodbye text. He shares his opinion that suicide is selfish, he has too many things to live for and too many important people to live for. Patient denies any other drugs or alcohol use. Patient is open to treatment but would also like to go home soon. Patient has been off his Tapentadol ER for 8 days now, saying his back is very painful; said the plan was for him to be tapered off this and possibly moved to Suboxone. Patient would like to get back on some amount of Tapentadol since the pain feels intense and he is having withdrawal symptoms. Collateral: Patient's mother and stepfather presented to the unit and patient encouraged junior copywriter to discuss case with them who both agree that this was not a suicide attempt and that patient was not suicidal. They think that the goodbye text was simply saying goodbye and she thinks that Igor was well meaning but over- reacting. His mother says that patient will intermittently take more pain medications than prescribed and will sometimes run out early in the month; I even though his Keppra was discontinued couple years ago, patient still takes some once in a while when feeling the need to have his emotions calm down. Patient's mother said that he and his have been having marital strife due to several factors which includes struggles over her own children from another marriage and her breast cancer diagnosis. She says that patient's , who was once a [facility] [facility] consulting manager will one-week tell patient that she is excited to move with him to [place] and then another week tell him the mar lizbeth is over... Regarding history of patient using a gun, she says that a few years ago, right around the time of the TBI, patient's came in to find patient sitting with 1 of her guns pointed to his head. He immediately put it down and said that he just wanted to see what it felt like; that he could never actually hurt himself and would never do so; all guns were removed from the house at that time. Mother says no other suicidal gestures or expressions before or since. Impression: Patient has a history of depression, TBI however denies any SI at all and that overdose with prescribed Tapentadol ER was not intentional; patient's mother present knows patient well and concurs that patient not suicidal and this was accidental and not an attempt. Patient agrees that he has depression however he lists several medication trials that did not work out and currently patient is very hesitant to add any medications for depression. Patient's presentation, his report and mother's corroborating report all match and junior copywriter and team agree that patient is not suicidal. Hospital course: on the unit, patient remained in good behavioral and impulse control. He remained adamant that there was no SI at all and though depressed it was mild and not worrisome. Patient was in pain and withdrawal since he has been off Tapentadol ER for 8 days now; patient says his pain management provider been planning to taper him off this medication and patient agrees to restart but at a half dose and work out further taper with outpatient provider. Patient says he has not been on Keppra for years, without any seizure activity since TBI (initially some concern patient had a seizure however neurologist has concluded this is not the case and medication was discontinued); since restarted in the emergency room will restart patient now on 500 mg daily and let him taper off with outpatient provider which is his expressed plan; patient also has been off Ambien for several years; will discontinue both of these which were started in the ED. Patient reported feeling much better with having been restarted on Tapentadol ER; his affect was noticeably brighter and he was walking upright. He reported feeling overall better, and though some mild depression, is not concerned about it and does not want or feel the need for any medication for depression; he continued to deny any SI at all. Discussed his relationship with his , struggles of navigating through her mixed messages and feeling that he just needs to get some clarity on where the 2 of them stand; he plans to go and visit her in the hospital in [place]. Patient continues to report that he feels stable, safe and would like to discharges soon as possible, though he would like help getting setting up an appointment with a therapist and provider. Three day notice is in. Patient has remained stable on the unit and is not in imminent risk for harm to self or others.. Will proceed with discharge plans. Medication: Continue Tapentadol (Nucynta Er 150 Mg) 150 mg PO DAILY GEOVANNA (down from BID) adding Loperamide HCl (Loperamide Hcl 2 Mg Capsule) 4 mg PO Q4H PRN for w/drawal symptoms Omeprazole (Omeprazole 40 Mg Capsule.) 40 mg PO DAILY@0630 GEOVANNA Fenofibrate (Fenofibrate,Micronized 134 Mg Capsule) 134 mg PO BEDTIME GEOVANNA Hydrochlorothiazide (Hydrochlorothiazide 25 Mg Tablet) 25 mg PO BEDTIME GEOVANNA Lisinopril (Lisinopril 20 Mg Tablet) 20 mg PO BEDTIME GEOVANNA LOWERed to Levetiracetam 500 mg PO DAILY GEOVANNA; pt no longer prescribed and has not taken (regularly) in years; ED restarted him on 1000mg BID; lowering now and pt will f/u with PCP. DC'd Ambien: not taken in years (was restarted in ED) Pt to continue as outpt (Nebivolol [Bystolic]) 20 mg PO BEDTIME GEOVANNA (currently Non-Formulary in the hospital; so far BP stable) Pt to continue as outpt (Testosterone) 2 pump TOPICAL DAILY (currently Non- Formulary in the hospital) Time spent discussing smoking cessation with patient: 3 to 10 minutes Status at Discharge Functional status at discharge: independent ambulation Overall status at discharge: patient is back to baseline Time Spent with Patient Time attestation: Total time managing care of this patient today ____ minutes. Discharge Plan Discharge Anticipated Discharge Date/Time: 03/09/23 11:30 Patient Disposition: Home, Self-Care Discharge Diagnosis: MDD, recurrent, moderate in partial remission Referrals: [facility] [Other] - 1 Week (Please call the office next week to schedule follow up. is currently on vacation. ) [facility] (Psychiatry) [Other] - 1 Week (Referral for outpatient psychiatry Services (Initial Psychiatry evaluation) Appointment will be in office with clinician at [facility] ) [facility] (therapy) [Other] - 1 Week (Referral for outpatient therapy services (diagnostic evaluation) Appointment will be in office with clinician at [facility]) Discharge Medications: New Nucynta 150 mg PO DAILY Qty: 0 0RF Continued omeprazole 40 mg Capsule,Delayed Release(Dr/Ec) 40 mg PO DAILY@0630 acetaminophen 500 mg Tablet 1,000 mg PO Q6H PRN (Reason: Pain) fenofibrate micronized 134 mg Capsule 134 mg PO BEDTIME lisinopril-hydrochlorothiazide [Zestoretic] 20-25 mg Tablet 1 tab PO BEDTIME rosuvastatin [Crestor] 10 mg Tablet 10 mg PO DAILY nebivolol [Bystolic] 20 mg Tablet 20 mg PO BEDTIME testosterone 20.25 mg/1.25 gram (1.62 %) Gel In Metered-Dose Pump 2 pump TOPICAL DAILY Rx Instructions: apply 1 pump amount over max area of EACH upper arm and shoulder Discontinued levetiracetam [Keppra] 750 mg Tablet 750 mg PO BID zolpidem 5 mg Tablet 2.5 mg PO BEDTIME Rx Instructions: may repeat once if no response in 30-60 minutes Nucynta 50 mg Tablet 50 mg PO BID PRN (Reason: Breakthrough Pain) Nucynta ER 150 mg Tablet Extended Release 12 Hr 150 mg PO Q12H Discharge Orders: Discharge Order (Routine); Ordered 03/09/23 Ordered By: Cody Fortune Diet: Regular diet Activity on Discharge: As tolerated Stand Alone Forms: Patient Portal Discharge page, Community Support Care Plan Goals: Maintain mood and safe behaviors Take medications as prescribed Practice coping skills Continue with outpatient providers and reach out to them as needed Health Concerns: Mood stability and behaviors Chronic back pain Traumatic brain injury Hypertension History of Elevated cholesterol Plan of Treatment: Follow up with your PCP, psychiatric provider and other outpatient providers regarding above concerns Take medications as prescribed Names of POSSIBLE local therapists: Mikal Tate, Ph.D., [facility] [address] [place] [address]?[id number] Maciej Rouse, Ph.D., [facility] [address] [facility], [address]rd Floor [place], [place] [address] Amber Roth GEOTHERMAL TECHNICIAN [address],?[id number] Assessment: Risk assessment at time of discharge:? Patient was interviewed prior to discharge and found to be fully oriented and without any SI or HI. Patient has insight and demonstrates good judgment in terms of wanting to pursue treatment. Patient is not in imminent risk of harm to self or others and has a safety plan that includes presenting to the closest ER or calling 911 if feeling unsafe.? Patient has been observed closely by nursing and unit staff throughout admission; patient has not engaged in any behaviors that suggest dangerousness to self or others and has demonstrated appropriate behaviors and impulse control Discharge Date/Time: 03/09/23 11:30
== END 2023-03-09 11:30 | disposition home or self-care (01) | DRG 885 ==
LOC: HO.ED 03-05 13:26 → HO.PM5 03-06 12:44
PROVIDERS: Emergency Medicine; Admitting Provider Psychiatry & Neurology Psychiatry; Emergency Provider Emergency Medicine; Visit Provider Psychiatry & Neurology Psychiatry
DX: F33.1 Major depressive disorder, recurrent, moderate (principal); R45.851 Suicidal ideations; M54.9 Dorsalgia, unspecified; G89.29 Other chronic pain; Z20.822 Contact with and (suspected) exposure to COVID-19; Z87.820 Personal history of traumatic brain injury; Z79.899 Other long term (current) drug therapy
CPT/HCPCS: 36415; 80048; 80307; 81003; 82607; 82746; 84443; 84484; 85025; 87635; 93005; 99285; S9485

== ENCOUNTER → 2023-03-06 12:40 | Outpatient (BNV) | payer MEDICARE, OTHER, SELFPAY | PROVIDERS: Admitting Provider Psychiatry & Neurology Psychiatry; Emergency Provider Emergency Medicine; Visit Provider Psychiatry & Neurology Psychiatry | DX: F33.1 Major depressive disorder, recurrent, moderate (principal); S06.9X9S Unspecified intracranial injury with loss of consciousness of unspecified duration, sequela; M54.9 Dorsalgia, unspecified; G89.29 Other chronic pain | CPT/HCPCS: 90792; 99231; 99238 ==